=== PATIENT | male | born 1980 | race Caucasian/White ===

== ENCOUNTER 2021-10-30 02:08 | Day surgery (SDC) | payer OTHER, SELFPAY ==
[2021-10-29 09:00] VITALS: BMI 34.4
--- NOTE | 2021-10-29 09:08 | PC.NURSE ---
Report to the Outpatient Waiting Room, entrance under the green pavilion located off [facility], at time ___0830____ on date __10/30/21 . OR Time: _1030 . Time changes happen often and if your time is changed the preop area will call you the afternoon before. - You and your visitor will be asked to self-screen and do not enter if you have any COVID symptoms. - Only one visitor and NO children visitors are allowed at this time. - The patient visitor is requested to leave or wait in car when not with patient due to restrictions. - A mask is required within the hospital. Patients may have clear liquids (water, carbonated beverages, clear teas, apple juice) until 3 hours prior to surgery (0730 AM) with a maximum of 20 ounces. - No food from midnight until time of surgery - Infants may have breast milk until 4 hours before surgery, infant formula 6 hours prior to surgery. - Children will be allowed to drink immediately following surgery. If applicable, please bring a bottle or sippy cup to assist with drinking. Juice, water, soda, and popsicles are readily available. For infants on formula, please bring formula the day of surgery. Pacifiers are allowed. Take the following medications with a SIP of water the morning of surgery: PAIN MED IF NEEDED Medications to discontinue per physician Date to take last dose Please no make-up, nail nauruan, hairspray, perfume, deodorant, or body powder the day of surgery. No jewelry (including any body piercings) or valuables the day of surgery, leave them at home. Please take a shower or bath the night before, or the morning of, surgery with an antibacterial soap. Wear comfortable, loose fitting clothing. Children are encouraged to wear pajamas. - Jewelry must be removed prior to entering the operating room. Rings and piercings that are not removed may be cut off. - The hospital will not accept responsibility for valuables. - Please leave all valuables, including medications, at home the day of surgery. If you are going home after surgery, a licensed warehouse delivery driver must drive you home. - NO public transportation without another adult. - We recommend that an adult stay with you for 24 hours following discharge. - We also recommend that you do not drive, make important decision, drink alcoholic beverages, or take any drugs that were not prescribed by your health care provider for at least 24 hours after your discharge time. For Pediatric surgeries, we recommend two adults accompany the child home (only one inside the building at this time). Follow any additional instructions given to you from your surgeon. If you or anyone in your household have experienced Covid symptoms in the past week, please notify your surgeon or the nurse liaison at the phone number below for possible testing. Telephone instructions given to ____PT and asked if any additional questions and then verbalized understanding. Patient advised to call surgeon office or pre surgery nurse liaison [phone] if any additional questions.
--- NOTE | 2021-10-29 12:04 | PM.HPGS ---
History of Present Illness History of Present Illness Consent: Risks, benefits, and alternatives have been discussed and questions answered. Patient agrees to proceed with procedure. Chief complaint: right ureteral stone Narrative: Manuel Shell Jr. is a 41 year old male who is followed by Dr. Harden for erectile dysfunction but without known history of urolithiasis until recently developed right flank pain. Imaging demonstrates a 4 mm obstructing right distal ureteral calculus. After discussion of options he has elected to proceed with cystoscopy with right ureteroscopy and stone extraction, possible laser lithotripsy, retrograde pyelogram and stent placement. He is aware of the risk including, but not limited to, adverse cardiopulmonary events, ureteral injury and need for indwelling stent. [facility] Social History Social History (System 10/28/20 @ 10:47 by Amrita Lorenzo) Smoking status: Current some day smoker Tobacco type: cigars Second hand tobacco smoke exposure: Yes (OCCASIONALLY) Additional smoking assessment comments: STATES 1 CIGAR/6 MONTHS X 10 YRS Alcohol intake: current Alcohol use details: STATES RARELY MAYBE 1-2 / 6 MONTH Substance use: never Substance use type: does not use Living arrangements: with family Spiritual care concerns: No Meds Home Medications and Allergies Home Medications Medication Instructions Recorded Confirmed Type hydrocodone 5 mg-acetaminophen 325 1 tablet PRN PRN Pain 10/29/21 10/29/21 History mg tablet tamsulosin 0.4 mg capsule 0.4 mg PO HS 10/29/21 10/29/21 History temazepam 15 mg capsule 15 mg HS 10/29/21 10/29/21 History Allergies Allergy/AdvReac Type Severity Reaction Status Date / Time No Known Allergies Allergy Verified 10/29/21 08:56 Exam Const: General: no acute distress Resp: Effort & Inspection: normal respiratory effort GI: Inspection: non-distended GI Palp: No abdominal tenderness and No Guarding due to palpation present (GI) Auscultation: normal bowel sounds Assessment and Plan Assessment and plan (1) Ureteral stone with hydronephrosis: Code(s): N13.2 - Hydronephrosis with renal and ureteral calculous obstruction Status: Acute Assessment and Plan: Cystoscopy, right ureteroscopy stone extraction, possible retrograde pyelogram, laser lithotripsy and stent placement
[2021-10-30] VITALS (7 sets, daily range): BP systolic 107–131; BP diastolic 73–92; PULSE 56–72; RESP 14–18; TEMP 36.2–36.4; O2SAT 94–98
--- NOTE | ~2021-10-30 | XR_ITS ---
EXAMINATION: XR fluoroscopy no charge DATE: 10/30/2021 12:10 INDICATION: Renal stone extraction TECHNIQUE: 2 fluoroscopic images of the abdomen and pelvis were obtained during procedure performed maris Fairchild. Radiologist was not present for the imaging or procedure. The amount of fluoroscopy samra e used during this procedure was 0.4 minutes. COMPARISON: None. FINDINGS: Cholecystectomy clips in right upper quadrant. Normal bowel gas pattern. Subtle density projecting al mak the lateral margin of the right sacral ala potentially representing a distal ureteral stone. Smal l density in the left hemipelvis on: The expected location of the left ureter and more likely to repr esent a phlebolith. IMPRESSION: 1. Possible distal right ureteral stone however assessment is limited by fluoroscopic technique. Rocío elate with procedure note and any prior outside imaging. Reviewed, dictated and finalized at location A. IMPRESSION: 1. Possible distal right ureteral stone however assessment is limited by fluoro scopic technique. Correlate with procedure note and any prior outside imaging.
--- NOTE | 2021-10-30 07:04 | WPDHPUPDATE1 ---
History and Physical Update Update Date/Time: 10/30/21 07:04 History and Physical has been reviewed, including an updated exam of the patient. There are NO changes in the patient's condition. Risks, benefits, and alternatives have been discussed and questions answered. Patient agrees to proceed with procedure.
--- NOTE | 2021-10-30 10:00 | P.PNAN_ITS ---
Anes - Initial Pre Proc Eval Procedure: Operation Date: 10/30/21 11:30 Proposed Procedures p Cystoscopy, Right Ureteroscopy, Possible Right Retrograde Pyelogram, Possible Right Stone Extraction, Possible Right Stent Placement, Possible Holmium Laser Procedure - Alex Fairchild MD Date/Time: 10/30/21 10:00 Surgeon: Alex Fairchild MD Pre Op Diagnosis: right ureteral stone Patient Data Age: 41 Gender: M Height: 1.83 m Weight: 120.2 kg Last Vital Signs Temp 36.4 C 10/30/21 09:55 Pulse 62 10/30/21 09:55 Resp 16 10/30/21 09:55 BP 129/81 10/30/21 09:55 Pulse Ox 98 10/30/21 09:55 O2 Del Method Room Air 10/30/21 09:55 Allergies Allergy/AdvReac Type Severity Reaction Status Date / Time No Known Allergies Allergy Verified 10/30/21 09:41 Home Medications Medication Instructions Recorded Confirmed Type hydrocodone 5 mg-acetaminophen 325 1 tablet PRN PRN Pain 10/29/21 10/30/21 History mg tablet tamsulosin 0.4 mg capsule 0.4 mg PO HS 10/29/21 10/30/21 History temazepam 15 mg capsule 15 mg HS 10/29/21 10/30/21 History Patient hx anesthesia problems: none Family hx anesthesia problems: none Results Review: All pre-operative results and documents have been reviewed as part of the pre- operative evaluation. [facility] Past Medical History Medical History LINETTE (obstructive sleep apnea) Tobacco abuse Social History Social History Smoking status: Current some day smoker Tobacco type: cigars Second hand tobacco smoke exposure: Yes (OCCASIONALLY) Additional smoking assessment comments: STATES 1 CIGAR/6 MONTHS X 10 YRS Alcohol intake: current Alcohol use details: STATES RARELY MAYBE 1-2 / 6 MONTH Substance use: never Substance use type: does not use Living arrangements: with family Spiritual care concerns: No Anes - Eval Final PreProcedure Day of Procedure 10/30/21 10:00 Patient weight: obese Heart: regular rate and rhythm Lungs: decreased breath sounds Airway: Mallampati scale class II Neurological: alert and oriented Last oral intake: >/= 8 hours ASA classification: III Emergent: no Anesthetic plan: proceed Anesthesia type and monitoring: general LMA and standard monitoring Results Review: All pre-operative results and documents have been reviewed as part of the pre- operative evaluation. Informed Consent: The patient's anesthetic plan and its attendant risks and benefits were discussed with the patient/family/POA. Questions were solicited and answers provided to the satisfaction of the patient/family/POA.
[2021-10-30] MEDS: LACTATED RINGERS 1,000 ML 30 ML IV CONT (10:12)
[2021-10-30] MEDS: ceFAZolin 3 GM/D5W 100 ML 100 ML IVPB (11:42)
[2021-10-30] MEDS: LIDOCAINE HCL 2% GEL UROJET 10 ML PKG MUCOUS MEM (11:56)
--- NOTE | 2021-10-30 12:07 | W.PM.PROC2 ---
Procedure Note - Detailed Date of Procedure 10/30/21 Pre-op Diagnosis Right ureteral stone Post-op Diagnosis Same Procedure Performed Cystoscopy, right ureteroscopy with stone extraction Surgeon Alex Fairchild MD Description of Procedure The patient was brought to the operative suite where he is prepped and draped in a routine sterile fashion while in the dorsal lithotomy position after the uneventful induction of a general LMA anesthetic. A 19F rigid cystoscope was placed in the bladder. There are no urethral strictures. His prostatic urethra measures, approximately, 1.0cm with no median lobe enlargement. The bladder mucosa was endoscopically normal without hyperemia or neoplasm. There was a single, orthotopic ureteral orifice bilaterally. A 0.035 glidewire was advanced into the right renal pelvis under fluoroscopy. The distal ureter was dilated with an 8F/10F ureteral dilator. Ureteroscopy was undertaken with a short, tapered, semi-rigid ureteroscope and the stone was extracted with ease using a 1.9F Escape disposable stone basket. Due to the ease of this manipulation I opted not to place a ureteral stent. The patient's bladder was emptied and was taken to the recovery room having tolerated this procedure well. Drains No Packing No Pathology None sent Condition Stable Disposition PACU
[2021-10-30] MEDS: oxyCODONE HCL (*CRX) 5 MG TAB IR PO (13:19)
== END 2021-10-30 13:56 | disposition home or self-care (01) ==
PROVIDERS: PCP Family Medicine; Visit Provider Urology
PROC: (CPT 52352; principal; 2021-10-30 11:30)
DX: N13.2 Hydronephrosis with renal and ureteral calculous obstruction (principal); G47.33 Obstructive sleep apnea (adult) (pediatric); F17.210 Nicotine dependence, cigarettes, uncomplicated; E66.9 Obesity, unspecified; Z68.35 Body mass index [BMI] 35.0-35.9, adult
CPT/HCPCS: 52352; 82365; 88300; 99199; A9270; C1769; J0690; J1100; J1885; J2250; J2405; J2704; J3010; J7120; Q9966

== ENCOUNTER 2021-10-31 20:18 | Observation (INO) | payer OTHER, SELFPAY ==
--- NOTE | ~2021-10-31 | CT_ITS ---
EXAMINATION: CT abdomen pelvis wo con DATE: 10/31/2021 21:21 INDICATION: Status post 2 urethroscopy with stone extraction TECHNIQUE: Computed tomography (CT) of the abdomen and pelvis was performed without intravenous contr ast. Automated exposure control and iterative reconstruction technique were employed. The dose-length product was 1315.45 mGy-cm. COMPARISON: Fluoroscopy 10/31/2019. FINDINGS: Lower thorax: Coronary artery calcification. Right middle lobe scar. Liver: Fatty infiltration. Small cyst near the liver dome. Biliary/Gallbladder: Gallbladder is absent. No bile duct dilation. Pancreas: No mass or duct dilation. Spleen: Normal. Adrenals:No mass. Kidneys: Right kidney appears slightly edematous. Mild-moderate right hydronephrosis. No obstructing stone or mass. Mild inflammatory change around the right kidney and right ureter. Nonobstructing left inferior and punctate left upper pole calculi. GI tract: No small or large bowel dilation. Normal appendix. Mesentery/Peritoneum: No ascites, mass, or free air. Retroperitoneum: No mass. Pelvis: The bladder is decompressed. Inflammatory changes around the right distal ureter and the righ t UVJ. Soft Tissues: Uncomplicated fat-containing bilateral inguinal hernias Bones: No acute osseous finding. IMPRESSION: No pneumoperitoneum or free fluid. Mild-moderate right hydronephrosis with inflammation of the right kidney and right collecting system, presumably related to recently treated obstructive uropathy. No o bstructing stone or mass. Ascending infection cannot be excluded. Reviewed, dictated and finalized at location K. IMPRESSION: No pneumoperitoneum or free fluid. Mild-moderate right hydronephrosis with infl ammation of the right kidney and right collecting system, presumably related to recently treated obstructive uropathy. No obstructing stone or mass. Ascending infection cannot be excluded.
[2021-10-31 20:25] VITALS: BP 186/98; PULSE 68; RESP 16; TEMP 36.9; O2SAT 99
--- NOTE | 2021-10-31 20:27 | ED.MALEGU ---
HPI - Male Genitourinary General Chief complaint: Urogenital-Male Stated complaint: Groin Pain, Kidney stone removal 10/30/21 Time Seen by Provider: 10/31/21 20:22 Source: patient Mode of arrival: ambulatory History of Present Illness HPI Narrative: Patient is 41 years old white male drove himself to the emergency room from home complaining of right flank pain started 5 hours prior to arrival to the emergency room. Patient is status post cystoscopy, right ureteroscopy with stone extraction yesterday by Dr. Fairchild. Patient denies any fever, chills, nausea, vomiting. Patient denies aggravating or relieving factors. Patient been having burning sensation during urination immediately after the procedure. Patient on Keflex and hydrocodone as needed Related Data Home Medications Medication Instructions Recorded Confirmed hydrocodone 5 mg-acetaminophen 325 1 tablet PRN PRN Pain 10/29/21 10/30/21 mg tablet tamsulosin 0.4 mg capsule 0.4 mg PO HS 10/29/21 10/30/21 temazepam 15 mg capsule 15 mg HS 10/29/21 10/30/21 Allergies Allergy/AdvReac Type Severity Reaction Status Date / Time No Known Allergies Allergy Verified 10/31/21 20:28 Review of Systems Review of Systems: All systems reviewed & are unremarkable except as noted in HPI and below PMFSH Past Medical History Medical History LINETTE (obstructive sleep apnea) Tobacco abuse Social History Social History Smoking status: Current some day smoker Tobacco type: cigars Second hand tobacco smoke exposure: Yes (OCCASIONALLY) Additional smoking assessment comments: STATES 1 CIGAR/6 MONTHS X 10 YRS Alcohol intake: current Alcohol use details: STATES RARELY MAYBE 1-2 / 6 MONTH Substance use: never Substance use type: does not use Spiritual care concerns: No Exam Narrative: General appearance: Well-developed, well-nourished Skin: Normal color Head: Normocephalic, nontraumatic Eyes: Clear conjunctiva ENT: Oropharynx normal, ears normal, nose normal Neck: Supple, nontender Chest and respiratory: Airway patent, no respiratory distress, no accessory muscle use Heart: Regular rate/rhythm Abdomen: Soft, mild right flank tenderness, no organomegaly, quiet bowel sounds Vascular: Normal peripheral pulses, normal capillary refill. Musculoskeletal: Normal range of motion, nontender back Neurologic: Alert and oriented ?3, CREDIT VERIFICATION CLERK is normal as tested, no gross motor deficit Course Consultations Consultation #1: DR FAIRCHILD Date: 10/31/21 Time: 21:44 Vital Signs Vital signs: Vital Signs Temperature 36.9 C 10/31/21 20:25 Pulse Rate 68 10/31/21 20:25 Respiratory Rate 16 10/31/21 20:25 Blood Pressure 186/98 H 10/31/21 20:25 Pulse Oximetry 99 10/31/21 20:25 Temperature 36.9 C 10/31/21 20:25 Pulse Rate 68 10/31/21 20:25 Respiratory Rate 16 10/31/21 20:25 Blood Pressure 186/98 H 10/31/21 20:25 Pulse Oximetry 99 10/31/21 20:25 MDM - Male Genitourinary Lab Data Result diagrams: 10/31/21 20:44 10/31/21 20:44 Labs: Lab Results 10/31/21 10/31/21 10/31/21 Range/Units 20:44 20:44 20:44 WBC 13.7 H (4.5-10.0) K/mm3 RBC 5.01 (4.6-6.20) M/mm3 Hgb 15.1 (14.0-18.0) g/dL Hct 44.5 (42.0-52.0) % MCV 88.8 (80-100) fl MCH 30.1 (26-34) pg MCHC 33.9 (32-36) g/dl RDW 13.8 (11.5-14.5) % Plt Count 222 (150-375) k/mm3 MPV 10.4 (7.4-10.4) fl Immature Gran % (Auto) 0.3 (0-0.5) % Neut % (Auto) 63.4 (45.5-73.1) % Lymph % (Auto) 25.8 (18.3-44.2) % [place] % (Auto) 9.
[2021-10-31] MEDS: SODIUM CHLORIDE 0.9% IV 1,000 ML 999 ML IV CONT (20:40)
[2021-10-31] MEDS: HYDROmorphone HCL INJ (*CRX) 1 MG/ML SYR 0.5 MG IV PUSH ×2 (20:41→21:24)
[2021-10-31] MEDS: ONDANSETRON INJ 4 MG/2 ML VIAL IV PUSH (20:41)
[2021-10-31 20:51] LABS: Basophils Percent Auto 0.3 % (0.2-1.2); Eosinophils Absolute Auto 0.1 K/mm3 (0-0.3); Eosinophils Percent Auto 0.5 % (0-4.4); Hematocrit 44.5 % (42.0-52.0); Hemoglobin 15.1 g/dL (14.0-18.0); Immature Granulocyte Absolute 0.04 K/mm3 (0.00-0.031); Immature Granulocyte Percent A 0.3 % (0-0.5); Lymphocytes Absolute Auto 3.54 K/mm3 (0.9-3.2); Lymphocytes Percent Auto 25.8 % (18.3-44.2); Mean Corpuscular HGB Conc 33.9 g/dl (32-36); Mean Corpuscular Hemoglobin 30.1 pg (26-34); Mean Corpuscular Volume 88.8 fl (80-100); Mean Platelet Volume 10.4 fl (7.4-10.4); Monocytes Absolute Auto 1.3 K/mm3 (0.1-0.6); Monocytes Percent Auto 9.7 % (2.6-8.5); Neutrophils Absolute Auto 8.7 K/mm3 (1.3-6.7); Neutrophils Percent Auto 63.4 % (45.5-73.1); Platelet Count Result 222 k/mm3 (150-375); Red Blood Count 5.01 M/mm3 (4.6-6.20); Red Cell Distribution Width 13.8 % (11.5-14.5); White Blood Count 13.7 K/mm3 (4.5-10.0)
[2021-10-31 20:53] LABS: Appearance Urine Slightly Cloudy (Clear); Bilirubin Urine Negative (Negative); Blood Urine 3+ (Negative); Color Urine Yellow (Yellow); Glucose Urine UA Negative (Negative); Ketones Urine Trace mg/dL (Negative); Leukocyte Esterase Ur Trace LEU/UL (Negative); Nitrate Urine Negative (Negative); Protein Urine 1+ mg/dL (Negative); Specific Grav Ur >= 1.030 (1.001-1.035); Urobilinogen Urine 0.2 mg/dL (<2.0); pH Urine 5.5 (5.0-9.0)
[2021-10-31 21:01] LABS: Alanine Aminotransferase 46 U/L (6-50); Albumin Level 4.7 g/dL (3.5-5.1); Alkaline Phosphatase 58 U/L (38-126); Anion Gap 11 mmol/L (8-16); Aspartate Amino Transferase 35 U/L (17-59); Bilirubin,Total 0.9 mg/dL (0.2-1.3); Blood Urea Nitrogen 29 mg/dL (9-20); Calcium 9.5 mg/dL (8.4-10.2); Carbon Dioxide 23 mmol/L (22-30); Chloride 107 mmol/L (98-107); Estimated CRCL calculation 77 ml/min; Estimated Glomerular Filt Rate 51; Glucose 95 mg/dL (65-110); Potassium 4.1 mmol/L (3.4-5.0); Sodium 141 mmol/L (137-145)
[2021-10-31 21:02] LABS: Anion Gap 11 mmol/L (8-16); Blood Urea Nitrogen 30 mg/dL (9-20); Calcium 9.5 mg/dL (8.4-10.2); Carbon Dioxide 22 mmol/L (22-30); Chloride 107 mmol/L (98-107); Estimated CRCL calculation 77 ml/min; Estimated Glomerular Filt Rate 51; Glucose 94 mg/dL (65-110); Potassium 4.1 mmol/L (3.4-5.0); Sodium 140 mmol/L (137-145)
[2021-10-31 21:06] LABS: Add Urine Microscopic? YES; Calcium Oxalate Crystals Urine Present /hpf; RBC Urine >75 /hpf (0-2); WBC Urine 31-50 /hpf
[2021-10-31 22:12] VITALS: BP 168/88; PULSE 86; RESP 16; O2SAT 99
[2021-10-31] MEDS: KETOROLAC 30 MG/ML VIAL (*BKC) IV PUSH (22:41)
[2021-10-31 22:57] LABS: SARS-CoV-2 RNA PCR Negative
[2021-10-31 23:01] VITALS: BP 147/89; PULSE 73; RESP 18; O2SAT 99
--- NOTE | 2021-10-31 23:10 | ADMGEN ---
This patient, Manuel Shell Jr., was admitted to 2 Medical Room 261-01 @2310. Patient/family oriented to hospital policies and general routines including ID bracelet, bed and alarms, visiting hours, pain management, procedures, bathroom and other care routines, personal items, smoking policy, room service/diet, and visiting hours. Information on how to activate the Rapid Response Team has been discussed. Patient/Family are encouraged to report perceived risks to care and to ask questions if they do not understand what they are told or what they should do.
[2021-10-31 23:22] VITALS: BP 153/88; PULSE 68; RESP 16; TEMP 36.6; O2SAT 98; BMI 36.1
[2021-10-31] MEDS: SODIUM CHLORIDE 0.9% IV 1,000 ML 150 ML IV CONT (23:27)
[2021-11-01] MEDS: HYDROmorphone HCL INJ (*CRX) 1 MG/ML SYR 0.5 MG IV PUSH (01:53)
[2021-11-01] MEDS: SODIUM CHLORIDE 0.9% IV 1,000 ML 150 ML IV CONT ×2 (06:10→12:03)
[2021-11-01] MEDS: KETOROLAC 30 MG/ML VIAL (*BKC) IV PUSH (06:10)
[2021-11-01 06:21] VITALS: BP 117/71; PULSE 77; RESP 14; TEMP 36.6; O2SAT 97
[2021-11-01 06:31] LABS: Anion Gap 6 mmol/L (8-16); Blood Urea Nitrogen 30 mg/dL (9-20); Calcium 8.4 mg/dL (8.4-10.2); Carbon Dioxide 25 mmol/L (22-30); Chloride 107 mmol/L (98-107); Estimated CRCL calculation 89 ml/min; Estimated Glomerular Filt Rate > 60; Glucose 93 mg/dL (65-110); Sodium 138 mmol/L (137-145)
--- NOTE | 2021-11-01 08:58 | PM.IMHP ---
H&P: HPI History of Present Illness Date/Time: 11/01/21 08:58 Chief Complaint: Right flank pain Narrative: 41-year-old male status post right ureteroscopy with distal ureteral stone extraction on 10/30/2021. He did well for the first 36 hours but then began to have increasingly severe right flank pain radiating to his right lower quadrant. He denied fevers chills gross hematuria irritable voiding. Was seen in the ER where imaging revealed inflammation and slight obstruction of the right ureter without stone. This is consistent with ureteral edema. He is admitted for pain control and hydration. Review of Systems Cardiovascular: Cardiovascular: Denies chest pain, Denies lightheadedness, Denies palpitations and Denies dyspnea Respiratory: Respiratory: Denies dyspnea Gastrointestinal: Gastrointestinal: Reports abdominal pain, Denies diarrhea, Denies nausea and Denies vomiting Genitourinary: Genitourinary: Denies hematuria and Denies dysuria Endocrine: Endocrine: Denies palpitations PMFSH Past Medical History Medical History LINETTE (obstructive sleep apnea) Tobacco abuse Family History Family History (Updated 10/31/21 @ 23:19 by Evangelina Okeefe RN) Father Diabetes mellitus Social History Social History Smoking status: Current some day smoker Second hand tobacco smoke exposure: Yes (OCCASIONALLY) Additional smoking assessment comments: STATES 1 CIGAR/6 MONTHS X 10 YRS Alcohol intake: current Alcohol use details: STATES RARELY MAYBE 1-2 / 6 MONTH Substance use: never Substance use type: does not use Spiritual care concerns: No Meds Home Medications and Allergies Home Medications Medication Instructions Recorded Confirmed Type tamsulosin 0.4 mg capsule 0.4 mg PO HS 10/29/21 10/31/21 History temazepam 15 mg capsule 15 mg HS 10/29/21 10/31/21 History cephalexin 500 mg capsule 500 mg PO Q8H #9 caps 10/30/21 10/31/21 Rx hydrocodone 5 mg-acetaminophen 325 1 - 2 tablet PO Q6H PRN pain #20 10/30/21 10/31/21 Rx mg tablet tabs tramadol 50 mg tablet 100 mg PO TID PRN Pain 10/31/21 10/31/21 History Allergies Allergy/AdvReac Type Severity Reaction Status Date / Time No Known Allergies Allergy Verified 10/31/21 23:26 Vital Signs Vital Signs - 24 hr 10/31/21 20:25 10/31/21 22:12 10/31/21 23:01 Temperature 98.4 F Pulse Rate 68 86 73 Respiratory Rate 16 16 18 Blood Pressure 186/98 H 168/88 H 147/89 H Pulse Oximetry 99 99 99 Oxygen Delivery 10/31/21 23:19 10/31/21 23:22 11/01/21 06:21 Temperature 97.8 F 97.8 F Pulse Rate 68 77 Respiratory Rate 16 14 Blood Pressure 153/88 H 117/71 Pulse Oximetry 98 97 Oxygen Delivery Room Air 11/01/21 08:00 Temperature Pulse Rate Respiratory Rate Blood Pressure Pulse Oximetry Oxygen Delivery Room Air Exam Const: General: no acute distress Resp: Effort & Inspection: normal respiratory effort GI: Inspection: non-distended GI Palp: No abdominal tenderness and No Guarding due to palpation present (GI) Auscultation: normal bowel sounds H&P: Results Labs Labs: Short CBC 10/31/21 10/31/21 Range/Units 20:44 20:44 WBC 13.7 H Cancelled (4.5-10.0) K/mm3 Hgb 15.1 Cancelled (14.0-18.0) g/dL Hct 44.5 Cancelled (42.0-52.0) % Plt Count 222 Cancelled (150-375) k/mm3 BMP 10/31/21 10/31/21 11/01/21 20:44 20:44 05:46 Sodium 141 140 138 Potassium 4.1 4.1 4.0 Chloride 107 107 107 Carbon Dioxide 23 22 25 BUN 29 H 30 H 30 H Creatinine 1.50 H 1.50 H 1.30 Glucose 95 94 93 Calcium 9.5 9.5 8.4 Liver Function 10/31/21 Range/Units 20:44 Total Bilirubin 0.9 (0.2-1.3) mg/dL AST 35 (17-59) U/L ALT 46 (6-50) U/L Alkaline Phosphatase 58 (38-126) U/L Albumin 4.7 (3.5-5.1) g/dL Urine 10/31/21 Range/Units 20:44 Urine Color Yellow (Ye
[2021-11-01 11:10] VITALS: BP 134/91; PULSE 57; RESP 18; TEMP 36.2; O2SAT 96
[2021-11-01 16:57] VITALS: BP 144/87; PULSE 58; RESP 20; TEMP 36.6; O2SAT 97
--- NOTE | 2021-11-01 17:20 | PM.DS ---
DS: Admitting Diagnosis Discharge Date 11/01/2021 Admitting Diagnosis Right flank pain due to ureteral edema DS: Discharge Diagnosis Discharge Diagnosis (1) Hydronephrosis of right kidney: Code(s): N13.30 - Unspecified hydronephrosis Status: Acute DS: Summary Hospital Course Hospital Course: Patient was admitted 2 days after an endoscopic stone extraction for recurrent right flank pain. Imaging demonstrated right hydronephrosis without identifiable stone. This presentation was consistent with ureteral obstruction secondary to ureteral edema. He improved over a 24 hour period with supportive care including hydration and analgesics. He will be discharged on a combination of hydrocodone and oral Toradol. He has cephalexin at home from hos recent procedure. Time Spent with Patient Time attestation: Total time spent providing and/or coordinating discharge services: Exam Const: General: no acute distress Resp: Effort & Inspection: normal respiratory effort GI: Inspection: non-distended GI Palp: No abdominal tenderness and No Guarding due to palpation present (GI) Auscultation: normal bowel sounds DS: Data Data Completed and Pending Labs on day of discharge: Labs from last 24 hours 11/01/21 10/31/21 10/31/21 05:46 22:15 20:44 WBC RBC Hgb Hct MCV MCH MCHC RDW Plt Count MPV Immature Gran % (Auto) Neut % (Auto) Lymph % (Auto) [place] % (Auto) Eos % (Auto) Baso % (Auto) Lymph # (Auto) [place] # (Auto) Eos # (Auto) Baso # (Auto) Abs Immat Gran (auto) Absolute Neuts (auto) Absolute Nucleated RBC Nucleated RBC % % Immature Plt Fraction Sodium 138 140 Potassium 4.0 4.1 Chloride 107 107 Carbon Dioxide 25 22 Anion Gap 6 L 11 BUN 30 H 30 H Creatinine 1.30 1.50 H Estim Creat Clear Calc 89 77 Estimated GFR > 60 51 L Glucose 93 94 Calcium 8.4 9.5 Total Bilirubin AST ALT Alkaline Phosphatase Total Protein Albumin Urine Color Urine Appearance Urine pH Ur Specific [place] Urine Protein Urine Glucose (UA) Urine Ketones Ur Blood (Man) Urine Nitrate Urine Bilirubin Urine Urobilinogen Leukocyte Esterase Rfl Urine RBC Urine WBC Calcium Oxalate Crystal SARS-CoV-2 RNA (RT-PCR) Negative 10/31/21 10/31/21 10/31/21 20:44 20:44 20:44 WBC Cancelled 13.7 H RBC Cancelled 5.01 Hgb Cancelled 15.1 Hct Cancelled 44.5 MCV Cancelled 88.8 MCH Cancelled 30.1 MCHC Cancelled 33.9 RDW Cancelled 13.8 Plt Count Cancelled 222 MPV Cancelled 10.4 Immature Gran % (Auto) Cancelled 0.3 Neut % (Auto) Cancelled 63.4 Lymph % (Auto) Cancelled 25.8 [place] % (Auto) Cancelled 9.7 H Eos % (Auto) Cancelled 0.5 Baso % (Auto) Cancelled 0.3 Lymph # (Auto) Cancelled 3.54 H [place] # (Auto) Cancelled 1.3 H Eos # (Auto) Cancelled 0.1 Baso # (Auto) Cancelled 0.0 Abs Immat Gran (auto) Cancelled 0.04 H Absolute Neuts (auto) Cancelled 8.7 H Absolute Nucleated RBC Cancelled 0.0 Nucleated RBC % Cancelled 0.0 % Immature Plt Fraction Cancelled Sodium 141 Potassium 4.1 Chloride 107 Carbon Dioxide 23 Anion Gap 11 BUN 29 H Creatinine 1.50 H Estim Creat Clear Calc 77 Estimated GFR 51 L Glucose 95 Calcium 9.5 Total Bilirubin 0.9 AST 35 ALT 46 Alkaline Phosphatase 58 Total Protein 8.0 Albumin 4.7 Urine Color Urine Appearance Urine pH Ur Specific [place] Urine Protein Urine Glucose (UA) Urine Ketones Ur Blood (Man) Urine Nitrate Urine Bilirubin Urine Urobilinogen Leukocyte Esterase Rfl Urine RBC Urine WBC Calcium Oxalate Crystal SARS-CoV-2 RNA (RT-PCR) 10/31/21 20:44 WBC RBC Hgb Hct MCV MCH MCHC RDW Plt Count MPV Immature Gran % (Auto) Neut % (Auto) Lymp
[2021-11-01] MEDS: LOPERAMIDE HCL 2 MG CAPSULE 4 MG PO (18:01)
== END 2021-11-01 18:20 | disposition home or self-care (01) ==
LOC: ANHED 21:46 → ANH2MED 22:46
PROVIDERS: Admitting Provider Urology; Emergency Provider Emergency Medicine; PCP Family Medicine; Visit Provider Urology
DX: N13.30 Unspecified hydronephrosis (principal); N39.0 Urinary tract infection, site not specified; Z98.890 Other specified postprocedural states; G47.33 Obstructive sleep apnea (adult) (pediatric); K76.89 Other specified diseases of liver; Z90.49 Acquired absence of other specified parts of digestive tract; Z20.822 Contact with and (suspected) exposure to COVID-19; F17.290 Nicotine dependence, other tobacco product, uncomplicated; Z79.891 Long term (current) use of opiate analgesic; Z79.899 Other long term (current) drug therapy
CPT/HCPCS: 36415; 74176; 80048; 80053; 81001; 85025; 87086; 96361; 96374; 96375; 96376; 99285; A9270; C9803; G0378; J0131; J0696; J1170; J1885; J2405; J7030; U0003; U0005

== ENCOUNTER 2022-01-26 09:36 | Outpatient (CLI) | payer OTHER, SELFPAY ==
--- NOTE | ~2022-01-26 | XR_ITS ---
XR abdomen/kub 1V DATE: 01/26/2022 09:59 INDICATION: Bilateral kidney stones TECHNIQUE: 3 supine AP views COMPARISON: 10/31/2021 CT abdomen pelvis FINDINGS: There is a faint calcification overlying the lower pole left kidney corresponding to approx imately 3.7 mm calculus of lower pole documented on 10/31/2021 CT examination. No other urinary tract calcification is evident. Surgical clips, right upper quadrant, consistent with cholecystectomy. The psoas shadows are intact. No visceromegaly is detected. No evidence of bowel obstruction. IMPRESSION: Approximately 3.7 mm nonobstructing faintly calcified lower pole left renal calculus Reviewed, dictated and finalized at [facility]. Reviewed, dictated and finalized at location B. DELIVERER IMPRESSION: Approximately 3.7 mm nonobstructing faintly calcified lower pole le ft renal calculus
== END 2022-01-26 09:37 | disposition home or self-care (01) ==
PROVIDERS: PCP Family Medicine; Visit Provider Urology
DX: N20.2 Calculus of kidney with calculus of ureter (principal)
CPT/HCPCS: 74018

== ENCOUNTER 2022-04-08 15:20 | Outpatient (CLI) | payer OTHER, SELFPAY ==
--- NOTE | ~2022-04-08 | XR_ITS ---
EXAMINATION: XR knee LT 3V DATE: 04/08/2022 15:30 INDICATION: Left knee pain and swelling TECHNIQUE: Three views of the right knee were obtained. COMPARISON: None. FINDINGS: Alignment is normal. No fracture or osteochondral lesion. Joint spaces are normal with no e rosions. No joint effusion/synovitis. There is mild soft tissue swelling of the knee. IMPRESSION: 1. Mild soft tissue swelling without acute osseous abnormality. Reviewed, dictated and finalized at location A. ELLER LAYOUT WORKER
== END 2022-04-08 15:21 | disposition home or self-care (01) ==
LOC: ANHBWCIMG 15:21
PROVIDERS: PCP Family Medicine; Visit Provider Family Medicine
DX: M25.562 Pain in left knee (principal); R22.42 Localized swelling, mass and lump, left lower limb
CPT/HCPCS: 73562

== ENCOUNTER 2022-11-01 11:34 | Outpatient (CLI) | payer OTHER, SELFPAY ==
--- NOTE | ~2022-11-01 | XR_ITS ---
EXAM: XR shoulder LT min 2V DATE: 11/01/2022 11:47 HISTORY: LT shoulder limited ROM, chronic but worse in last 3 months . COMPARISON: None available. FINDINGS: Normal mineralization. No fracture or dislocation. No lytic or blastic lesion. Mild AC maribell nt hypertrophy. Round calcification projecting over the biceps anchor. No erosion or periosteal elizondo e. Soft tissues within normal limits. IMPRESSION: Mild AC joint osteoarthritis. Likely calcific tendinitis at the biceps anchor. Reviewed, dictated and finalized at location K.
== END 2022-11-01 11:35 | disposition home or self-care (01) ==
PROVIDERS: PCP Nurse Practitioner Adult Health; Visit Provider Nurse Practitioner Adult Health
DX: M25.512 Pain in left shoulder (principal); M19.012 Primary osteoarthritis, left shoulder
CPT/HCPCS: 73030

== ENCOUNTER 2023-03-23 08:20 | Outpatient (CLI) | payer OTHER, SELFPAY ==
[2023-03-23 18:46] LABS: Hematocrit 47.2 % (42.0-52.0); Hemoglobin 15.7 g/dL (14.0-18.0); Mean Corpuscular HGB Conc 33.3 g/dl (32-36); Mean Corpuscular Volume 90.1 fl (80-100); Mean Platelet Volume 11.4 fl (7.4-10.4); Platelet Count Result 196 k/mm3 (150-375); Red Blood Count 5.24 M/mm3 (4.6-6.20); Red Cell Distribution Width 13.7 % (11.5-14.5)
[2023-03-23 19:25] LABS: Alanine Aminotransferase 66 U/L (6-50); Albumin Level 4.3 g/dL (3.5-5.1); Alkaline Phosphatase 58 U/L (38-126); Anion Gap 8 mmol/L (8-16); Aspartate Amino Transferase 69 U/L (17-59); Bilirubin,Total 1.3 mg/dL (0.2-1.3); Blood Urea Nitrogen 20 mg/dL (9-20); Calcium 9.3 mg/dL (8.4-10.2); Carbon Dioxide 25 mmol/L (22-30); Chloride 105 mmol/L (98-107); Cholesterol 247 mg/dL (0-200); Estimated Glomerular Filt Rate > 60; Glucose 95 mg/dL (65-110); HDL Direct 34 mg/dL; Potassium 4.8 mmol/L (3.4-5.0); Sodium 138 mmol/L (137-145); Triglycerides 258 mg/dL (<150)
[2023-03-23 19:36] LABS: LDL Cholesterol Direct 155 mg/dL
[2023-03-27 12:01] LABS: Testosterone Free 105.3 pg/mL (35.0-155.0); Testosterone Total 924 ng/dL (250-1100)
== END 2023-03-23 08:21 | disposition home or self-care (01) ==
PROVIDERS: PCP Nurse Practitioner Adult Health; Visit Provider Nurse Practitioner Adult Health
DX: Z13.9 Encounter for screening, unspecified (principal); N52.9 Male erectile dysfunction, unspecified; G47.33 Obstructive sleep apnea (adult) (pediatric)
CPT/HCPCS: 36415; 80053; 80061; 84402; 84403; 84443; 85027

== ENCOUNTER 2024-04-24 06:33 | Day surgery (SDC) | payer OTHER, SELFPAY ==
[2024-03-13 11:13] VITALS: BMI 34.6
[2024-04-09 10:56] VITALS: BMI 34.4
--- NOTE | 2024-04-24 07:08 | PM.HPGS ---
History of Present Illness History of Present Illness Consent: Risks, benefits, and alternatives have been discussed and questions answered. Patient agrees to proceed with procedure. Chief complaint: Lumbosacral spondylosis, chronic low back pain Narrative: Manuel Shell Jr. is a 43 year old male with chronic, recalcitrant and disabling bilateral lumbosacral back pain secondary to degenerative spondylosis with failure to respond to aggressive conservative measures including PT, oral and topical analgesics, opioid and nonopioid analgesics, rest, time and activity/behavioral modification over the past 1-2 years who presents for diagnostic/prognostic medial branch blocks of the bilateral L3, L4, L5 medial branches/dorsal ramus(#1) addressing the ipsilateral L4-5, L5-S1 facet joints under fluoroscopic guidance and with contrast control. Review of Systems Review of Systems: Patient denies any new infectious, allergic, cardiopulmonary, neurologic or constitutional symptoms or changes in activity tolerance or exercise capacity including new or progressive SOB/KRISHNAN, peripheral edema, productive cough, dysuria, nausea/vomiting, diarrhea, weight change, fevers/chills/night sweats, new or progressive neurologic deficit, cognitive or mood changes since last seen, except as documented in the HPI. All systems reviewed & are unremarkable except as noted in HPI and below PMFSH Past Medical History Medical History Tobacco abuse LINETTE (obstructive sleep apnea) Family History Family History Father Diabetes mellitus Hypertension Depression Mother Depression Social History Social History Smoking status: Never smoker Second hand tobacco smoke exposure: No Additional smoking assessment comments: STATES 1 CIGAR/6 MONTHS X 10 YRS Alcohol intake: current Alcohol use details: STATES RARELY MAYBE 1-2 / 6 MONTH Substance use: never Substance use type: does not use Lack of Transportation: No Lack of Food: Never True Current Housing: I Have Housing Concerned About Future Housing: No Difficulty Paying Gas/Electric Bills: No Difficulty Paying for Meds: No Currently Unemployed: No Education: High School Diploma/GED Difficulty w/ Childcare or Family Care: No Living arrangements: with family Gender identity (if verbalized by the patient): Male Spiritual care concerns: No Meds Home Medications and Allergies Home Medications ?Medication ?Instructions ?Recorded ?Confirmed ?Type sumatriptan succinate 100 mg See Rx Instructions PO .COMPLEX 12/29/21 04/24/24 Rx tablet (Imitrex) #14 tabs topiramate 50 mg tablet 50 mg PO DAILY #90 tabs 06/28/23 04/24/24 Rx ropinirole 2 mg tablet 2 mg PO DAILY #30 tabs 07/11/23 04/24/24 Rx tadalafil 10 mg tablet 10 mg PO DAILY PRN sexual activity 11/18/23 04/24/24 Rx #20 tabs tramadol 50 mg tablet 100 mg (2 x 50 mg) PO Q6H PRN pain 03/29/24 04/24/24 Rx #100 tabs Allergies Allergy/AdvReac Type Severity Reaction Status Date / Time No Known Allergies Allergy Verified 04/24/24 06:58 Exam Narrative: The patient's physical exam is essentially unchanged from prior examination on 03/05/2024. Specifically, patient demonstrates normal lung capacity, tidal volume and respiratory rate without wheezes, crackles, rales or rubs. Heart rate and rhythm are regular without murmurs, gallops or rubs. No JVD. Pulses 2+ globally without increasing peripheral edema. AAOx3 with no evidence of confusion, intoxication or altered mental state, NC/AT without acute distress or altered consciousness. Speech, cognition, mood, insight and judgment at baseline and within normal limits. Assessment and Plan Assessment and plan (1) Lumbosacral spondylosis: Code(s): M47.817 - Spondylosis without myelopathy or radiculopathy, lumbosacral region Status: Acute Assessment and Plan: Procedures planned with diagnostic/prognostic medial branch blocks of the bilateral L3, L4, L5 medial branches/dorsal ramus(#1) addressing the ipsilateral L4-5, L5-S1 facet joints under fluoroscopic guidance and with contrast control. (2) Chronic low back pain: Code(s): M54.50 - Low back pain, unspecified; G89.29 - Other chronic pain Status: Acute (3) Dorsalgia of lumbar region: Code(s): M54.50 - Low back pain, unspecified Status: Acute
[2024-04-24 07:09] VITALS: BMI 35.9
[2024-04-24 07:10] VITALS: BP 144/102; PULSE 71; RESP 18; TEMP 36.6; O2SAT 99
--- NOTE | 2024-04-24 07:10 | WPDHPUPDATE1 ---
History and Physical Update Update Date/Time: 04/24/24 07:10 History and Physical has been reviewed, including an updated exam of the patient. There are NO changes in the patient's condition. Risks, benefits, and alternatives have been discussed and questions answered. Patient agrees to proceed with procedure.
--- NOTE | 2024-04-24 07:11 | W.PM.PROC2 ---
Procedure Note - Detailed Date of Procedure 04/24/24 Pre-op Diagnosis Lumbosacral spondylosis, chronic low back pain Post-op Diagnosis Same Procedure Performed Diagnostic bilateral Lumbar Medial Branch/Dorsal Ramus Blocks at L3, L4, L5 Treating the bilateral L4-5, L5-S1 Facet Joints Under Fluoroscopic Guidance and with Contrast Control. (4 levels blocked). Surgeon Jaren Pradhan MD Steel Rule Die Maker None. Anesthesia Local Description of Procedure INFORMED CONSENT: Risks, benefits and alternatives to the procedure were discussed in detail with the patient who expressed explicit understanding and consent to proceed. Patient was informed verbally and in written form regarding the risks associated with the procedure including the low risk of serious infection, bleeding/bruising, allergic reaction, nerve or organ injury, paralysis, procedural site pain or discomfort, worsening pain and/or mobility, failure to treat and/or disfigurement. The patient expressed explicit understanding and consent to proceed. All materials required for the procedure were available prior to procedure start. Site and side were marked prior to procedure and confirmed in the presence of the patient. PROCEDURE IN DETAIL: The patient was brought to the procedural suite and placed in the prone position. Patient was made comfortable with use of pillows under the head/chest, hips and ankles. Skin overlying the injection site on the affected side(s) was prepared broadly with ChloraPrep applicator and draped in a sterile manner. Aseptic technique was used throughout. The endplates of the vertebral bodies at the site(s) of interest were aligned in the AP view. Ipsilateral oblique angulation was utilized to optimize visualization of the intersection between the superior articulating process and transverse process at each target site. Local anesthesia was established by infiltration with approximately 5 mL of 1% lidocaine via a 1-1/2 inch 27-gauge needle. A 25-gauge 5.0 inch Quincke spinal needle was advanced until the needle tip contacted periosteum at the target site, right L3. Lateral view was utilized to confirm the appropriate placement of the needle tip just anterior to the facet line and superior to the pedicle. In the Lateral view, 0.25 mL of Omnipaque 300 contrast medium was injected after negative aspiration for CSF, blood or other bodily fluid, showing appropriate extra-articular spread of contrast without evidence of intravascular, foraminal or intrathecal placement. A 0.5 mL solution of 0.5% PF bupivacaine was injected after negative repeat aspiration. Appropriate spread of the injectate was confirmed with washout of previously injected contrast. No parasthesias were elicited. Needle was removed completely intact without difficulty. The same exact procedure was repeated for all remaining levels on the ipsilateral side, right L4, L5 medial branches/dorsal ramus, modified as necessary to accommodate for the new target location with identical findings and results and no evidence of complication. The same exact procedure was repeated for all remaining levels on the contralateral side, left L3, L4, L5 medial branches/dorsal ramus, modified as necessary to accommodate for the new target location with identical findings and results and no evidence of complication. Images were saved and documented in the patient chart. Patient's skin was cleaned and sterile bandage applied. The patient tolerated the procedure well. The patient was transported to the recovery area in stable condition where they were observed for an appropriate amount of time prior to discharge, without evidence of complication. Patient was instructed on the appropriate completion of a pain diary over the next 12-24 hours. The patient was instructed to avoid excessive activity for the next 48 hours, including climbing and frequent use of stairs. Showers only for 48 hours. They were instructed not to drive or operate heavy machinery for 24 hours. They are to monitor for severe headaches, fevers, chills, night sweats, erythema/swelling at the site or any other signs of infection, bleeding/bruising, bowel or bladder changes as well as new pain, weakness or numbness in the upper or lower extremity. Should they notice these changes, they are instructed to call our office immediately or report directly to the nearest Emergency Department if no answer or if after posted office hours. COMPLICATIONS: None COMMENTS: None CONTRAST WASTED: 28.5mL Omnipaque 300. Complications No immediate complications Condition Stable Disposition Same day [facility] Billing Surgery - Charge Forward: Surgery Billing
[2024-04-24 07:33] VITALS: BP 137/86; PULSE 64; RESP 12; O2SAT 95
[2024-04-24 07:39] VITALS: BP 153/91; PULSE 62; RESP 16; O2SAT 96
[2024-04-24 07:46] VITALS: BP 162/97; PULSE 71; RESP 20; O2SAT 97
[2024-04-24] MEDS: LIDOCAINE 1% PF INJ 5 ML VIAL XX (07:50)
[2024-04-24] MEDS: BUPivacaine HCL 0.5% 10 ML AMP INFILTRATE (07:51)
[2024-04-24 07:55] VITALS: BP 143/100; PULSE 74; RESP 18; O2SAT 99
== END 2024-04-24 08:07 | disposition home or self-care (01) ==
PROVIDERS: PCP Family Medicine; Visit Provider Anesthesiology Pain Medicine
PROC: (CPT 64493; principal; 2024-04-24 07:30)
DX: M47.817 Spondylosis without myelopathy or radiculopathy, lumbosacral region (principal); G89.29 Other chronic pain
CPT/HCPCS: 64493; 64494 ×2; 64495 ×2; 99199

== ENCOUNTER 2024-07-17 07:56 | Day surgery (SDC) | payer OTHER, SELFPAY ==
[2024-06-28 08:57] VITALS: BMI 35.2
--- NOTE | ~2024-07-17 | XR_ITS ---
INTRAOPERATIVE FLUOROSCOPY: CLINICAL HISTORY: 43 years old Male; DIAG/PROG ELLEN L3,L4,L5 MEDIAL BRANCH/DORSAL RAMUS BLK#2 PROCEDURE COMMENTS: Limited intraoperative fluoroscopy of the lumbar spine was performed. CUMULATIVE DOSE: 21.8 mGy FLUOROSCOPY TIME: 59 seconds FINDINGS/IMPRESSION: Please refer to operative note for further details. Reviewed, dictated and finalized at location A.
--- OUTSIDE RECORDS SUMMARY | 2024-07-17 08:52 | XMS_ITS | Referral Summary ---
Author Organization [facility] Address [address] [place] [address] Care Team Providers Care Childcare Director Name Role Phone Freids Arango MD Primary Care Provider [phone] Encounters Date Type Department Care Team Description 06/05/2024 12:05 PM CDT - 06/05/2024 12:51 PM CDT Emergency [facility] Emergency Department [address] [place] [address] Acute exacerbation of chronic low back pain (Primary Dx) Discharge Disposition: Discharge to home or self care from Last 3 Months Allergies No known active allergies Medications temazepam (RESTORIL) 15 mg capsule TAKE 1 TABLET BY MOUTH EVERY EVENING NEEDED FOR SLEEP 30 capsule 3 06/16/19 22 Active traMADoL (ULTRAM) 50 mg tablet Take 1 tablet (50 mg total) by mouth every 4 (four) hours as needed for pain (back pain.) Active HYDROcodone-acet aminophen (NORCO) 5-325 mg per tabletIndication s:Pain Take 2 tablets by mouth every 6 (six) hours as needed for pain 40 tablet 06/10/19 24 Active rOPINIRole (REQUIP) 2 mg tablet 09/09/19 24 Active topiramate (TOPAMAX) 50 mg tablet Take 1 tablet (50 mg total) by mouth daily 06/28/19 24 Active acetaminophen-co deine (TYLENOL with CODEINE #4) 300-60 mg per tabletIndication s:Acute exacerbation of chronic low back pain Take 1 tablet by mouth every 6 (six) hours as needed for pain P.r.n. pain not relieved by celecoxib alone. Take with food. Collaborating physician Miguelito Soto MD 15 tablet 06/06/19 25 Active celecoxib (CeleBREX) 200 mg capsuleIndicatio ns:Acute exacerbation of chronic low back pain Take 1 capsule (200 mg total) by mouth 2 (two) times a day P.r.n. pain. Collaborating physician Miguelito Soto MD 30 capsule 06/06/19 25 Active tiZANidine (ZANAFLEX) 4 mg tabletIndication s:Acute exacerbation of chronic low back pain Take 1 tablet (4 mg total) by mouth every 6 (six) hours as needed (Take as directed to relax muscles) Collaborating physician Miguelito Soto MD 20 tablet 06/06/19 25 Active Active Problems Problem Noted Date Diagnosed Date Dog bite of right hand 06/08/2023 FLOYD (acute kidney injury) 11/08/2022 Calculus of distal ureter 11/08/2022 Hyperbilirubinemia 11/08/2022 LINETTE (obstructive sleep apnea) 07/28/2020 History of carpal tunnel surgery of right wrist 10/02/2018 Kidney stones 04/19/2018 Acute exacerbation of chronic low back pain 11/21 Lumbar disc disease 10/13/2017 Erectile dysfunction 10/13/2017 Lack of libido 11/04/2016 Insomnia 07/07/2013 Overview (05/28/2016): INSOMNIA NEC Resolved Problems Problem Noted Date Diagnosed Date Resolved Date Morbid (severe) obesity due to excess calories 04/20/2021 04/21/2021 Viral URI with cough 11/11/2017 019 Assessment & Plan (11/11/2017 9:37 AM CDT): Reassured patient and that this appears to be the end of a viral illness at this time, likely somewhat of a rhino virus. Recommended Cheratussin for cough alleviation use of a humidifier, vaporizer, Tylenol cold and Sinus for acute congestion and certainly follow up with us within a week without any improvement or worsening in symptoms Chronic intractable headache 10/13/2017 10/02/2018 Chronic fatigue 11/04/2016 10/02/2018 BMI 34.0-34.9,adult 11/04/2016 09/26/19 21 Vasculogenic erectile dysfunction 11/04/2016 10/13/2017 Lumbar disc disease with radiculopathy 11/04/2016 10/13/2017 Pure hypercholesterolemia 07/07/2013 Overview (05/26/2016): PURE HYPERCHOLESTEROLEM Carpal tunnel syndrome 07/07/201310/02 Overview (05/28/2016): CARPAL TUNNEL SYNDROME Immunizations Immunization Administration Dates Next Due Influenza, Quadrivalent, Spl it, Intramuscular 01/02/2016,01/01/2015 Influenza, Quadrivalent, Spl it, Preservative Free, Intramuscular 03/05/2020 Influenza, Split 12/22/2009 Influenza, Trivalent, IM (MDV) 12/06/2012,2011,11/22/2010 Influenza, Unspecified 04/20/2021(Deferr ed: Patient Refused),12/02/2017 Tdap 06/06/2023,07/01/2016 Social History Tobacco Use Types Packs/Day Years Used Date Smoking Tobacco: Some Days Cigars Smokeless Tobacco: Never Tobacco Cessation:Ready to Q uit: Not Asked; Counseling Given: Not Answered Alcohol Use Standard Drinks/Week Comments Yes 0 (1 standard drink = 0.6 oz pur e alcohol) [facility] [employer] Answer Date Recorded In the past 12 months has e [email or web address], gas, oil, or water [employer] threatened to shut off services in your home? No 06/09/2023 Humiliation, Afraid, Rape, and Kick questionnair e Answer Date Recorded Within the last year, have y ou been afraid of your partner or ex-partner? No 06/09/2023 Within the last year, have y ou been humiliated or emotionally abused in other ways by your partner or ex-partner? No Within the last year, have y ou been kicked, hit, slapped, or otherwise physically hurt by your partner or ex-partner? No 06/09/2023 Within the last year, have y ou been raped or forced to have any kind of sexual activity by your partner or ex-partner? No 06/09/2023 Social Connection and Isolat ion Panel [NHANES] Answer Date Recorded In a typical week, how many times do you talk on the phone with family, friends, or neighbors? More than three times a week 06/09/2023 How often do you get togethe r with friends or relatives? Once a week 06/09/2023 How often do you attend chur ch or hindu services? Never 06/09/2023 Do you belong to any clubs o r organizations such as jainism groups, unions, fraternal or athletic groups, or school groups? Yes 06/09/2023 How often do you attend meet ings of the clubs or organizations you belong to? More than 4 times per year 06/09/2023 Are you , , di vorced, , never , or living with a partner? 06/09/2023 AUDIT-C Answer Date Recorded Q1: How often do you have a drink containing alc ohol? Monthly or less 06/09/2023 Q2: How many drinks containi ng alcohol do you have on a typical day when you are drinking? 10 or more 06/09/2023 Q3: How often do you have si x or more drinks on one occasion? Less than monthly 06/09/2023 Overall Financial Resource Strain (CARDIA) Answe r Date Recorded How hard is it for you to pa y for the very basics like food, housing, medical care, and heating? Not hard at all 06/09/2023 PHQ-2 Answer Date Recorded PHQ-2 Total Score (If total score is 3 or more points, staff should administer the PHQ-9) 0 06/09/2023 [facility] - Occupational Stress Questionnaire Answer Date Recorded Do you feel stress - tense, restless, nervous, or anxious, or unable to sleep at night because your mind is troubled all the time - these days? Only a little 06/09/2023 Exercise Vital Sign Answer Date Recorde d On average, how many days pe r week do you engage in moderate to strenuous exercise (like a brisk walk)? 5 days 06/09/2023 On average, how many minutes do you engage in exercise at this level? 60 min 06/09/2023 Hunger Vital Sign Answer Date Recorded Within the past 12 months, y ou worried that your food would run out before you got the money to buy more. Never true 06/09/19 24 Within the past 12 months, t he food you bought just didn't last and you didn't have money to get more. Never true 06/09/2023 PRAPARE - Transportation Answer Date Re corded In the past 12 months, has l ack of transportation kept you from medical appointments or from getting medications? No 05/22 In the past 12 months, has l ack of transportation kept you from meetings, work, or from getting things needed for daily living? No 06/09/2023 Housing Stability Vital Sign Answer Mushtaq e Recorded In the last 12 months, was t here a time when you were not able to pay the mortgage or rent on time? No 06/09/2023 In the last 12 months, how many places have you lived? 1 06/09/2023 In the last 12 months, was t here a time when you did not have a steady place to sleep or slept in a senior living (including now)? No 06/09/2023 PHQ-9 Answer Date Recorded PHQ-9 Total Score 0 06/09/2023 Personal Safety Answer Date Recorded Have you ever been in or are you currently in a harmful physical or emotional relationship or is someone making you feel afraid or unsafe? Denies 06/05/2024 Education Answer Date Recorded What is the highest level of school you have completed or the highest degree you have received? High school graduate 11/09/2022 Sex and Gender Information Value Date Recorded Sex Assigned at Not on file Legal Sex Male 3:49 PM [employer]TONHO[employer] Gender Identity Not on file Sexual Orientation Not on file Last Filed Vital Signs Vital Sign Reading Time Taken Comments Blood Pressure 140/74 06/05/2024 12:50 PM CDT Pulse 84 06/05/2024 12:50 PM CDT Temperature 36.6 C (97.9 F) 06/05/2024 11:21 AM CDT Respiratory Rate 14 06/05/2024 12:50 PM CDT Oxygen Saturation 98% 06/05/2024 12:50 PM CDT Inhaled Oxygen Concentration - - Weight 121.1 kg (267 lb) 06/05/2024 11:21 AM CDT Height 182.9 cm (6') 06/08/2023 2:21 PM CDT Body Mass Index 36.21 06/08/2023 2:21 PM CDT Plan of Treatment Not on file Insurance [facility] [employer] Address: [facility] [id number] [place] [address] [employer] OPEN ACCESS [place] [id number] [employer] Address: [facility] [id number] [place] [address] [place] [address] [employer] OPEN ACCESS [facility] WORKERS COMPENSATION GENERIC WORKERS COMPENSATION GENERIC Advance Directives For more information, please contact: [phone] * Full Code (Latest Code Status on File) Date Activated Date Inactivated Comments 06/08/2023 1:22 PM 06/10/2023 6:22 PM * Full Code Date Activated Date Inactivated Comments 11/08/2022 2:31 PM 11/10/2022 8:30 PM Care Teams Childcare Director Relationship Specialty Start Date End Date Fredis Arango MD PCP - General Family Practice 06/05/23
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
[2024-07-17 09:13] VITALS: BP 132/98; PULSE 60; RESP 18; TEMP 36.6; O2SAT 99
--- NOTE | 2024-07-17 09:49 | P.HP_ITS ---
History of Present Illness History of Present Illness Consent: Risks, benefits, and alternatives have been discussed and questions answered. Patient agrees to proceed with procedure. Chief complaint: Spondylosis w/o Myelopathy or Radiculopathy, chron Narrative: Manuel Shell Jr. is a 43 year old male with chronic, recalcitrant and disabling bilateral lumbosacral back pain secondary to degenerative spondylosis with failure to respond to aggressive conservative measures including PT, oral and topical analgesics, opioid and nonopioid analgesics, rest, time and activity/behavioral modification over the past 1-2 years who presents for diagnostic/prognostic medial branch blocks of the bilateral L3, L4, L5 medial branches/dorsal ramus(# 2) addressing the bilateral L4-5, L5-S1 facet joints under fluoroscopic guidance and with contrast control. Review of Systems Review of Systems: Patient denies any new infectious, allergic, cardiopulmonary, neurologic or cons titutional symptoms or changes in activity tolerance or exercise capacity including new or progressive SOB/KRISHNAN, peripheral edema, productive cough, dysuria, nausea/vomiting, diarrhea, weight change, fevers/chills/night sweats, new or progressive neurologic deficit, cognitive or mood changes since last seen, except as documented in the HPI. All systems reviewed & are unremarkable except as noted in HPI and below PMFSH Past Medical History Medical History Tobacco abuse LINETTE (obstructive sleep apnea) Family History Family History Father Diabetes mellitus Hypertension Depression Mother Depression Social History Social History Smoking status: Current some day smoker Tobacco type: cigars Second hand tobacco smoke exposure: Yes Additional smoking assessment comments: STATES 1 CIGAR/6 MONTHS X 10 YRS Alcohol intake: current Alcohol use details: rarely Substance use: never Substance use type: does not use Lack of Transportation: No Lack of Food: Never True Current Housing: I Have Housing Concerned About Future Housing: No Difficulty Paying Gas/Electric Bills: No Difficulty Paying for Meds: No Currently Unemployed: No Education: High School Diploma/GED Difficulty w/ Childcare or Family Care: No Living arrangements: with family Gender identity (if verbalized by the patient): Male Spiritual care concerns: No Meds Home Medications and Allergies Home Medications ?Medication ?Instructions ?Recorded ?Confirmed ?Type sumatriptan succinate 100 mg See Rx Instructions PO .COMPLEX 12/29/21 07/17/24 Rx tablet (Imitrex) #14 tabs ropinirole 2 mg tablet 2 mg PO DAILY #30 tabs 07/11/23 07/17/24 Rx tadalafil 10 mg tablet 10 mg PO DAILY PRN sexual activity 11/18/23 07/17/24 Rx #20 tabs doxepin 25 mg capsule 25 mg PO QHS #30 caps 05/31/24 07/17/24 Rx trazodone 50 mg tablet 50 mg PO QHS PRN insomnia #90 tabs 05/31/24 07/17/24 Rx topiramate 50 mg tablet See Rx Instructions .Route 06/25/24 07/17/24 Rx .COMPLEX #90 tabs benzonatate 200 mg capsule 200 mg PO TID PRN cough #30 caps 07/02/24 07/17/24 Rx tramadol 50 mg tablet 100 mg (2 x 50 mg) PO Q6H PRN pain 07/05/24 07/17/24 Rx #100 tabs Allergies Allergy/AdvReac Type Severity Reaction Status Date / Time No Known Allergies Allergy Verified 07/17/24 09:11 Vital Signs Vital Signs - 24 hr 07/17/24 09:13 Temperature 97.8 F Pulse Rate 60 Respiratory Rate 18 Blood Pressure 132/98 H Pulse Oximetry 99 Oxygen Delivery Room Air Exam Narrative: The patient's physical exam is essentially unchanged from prior examination on 05/14/2024. Specifically, patient demonstrates normal lung capacity, tidal volume and respiratory rate without wheezes, crackles, rales or rubs. Heart rate and rhythm are regular without murmurs, gallops or rubs. No JVD. Pulses 2+ globally without increasing peripheral edema. AAOx3 with no evidence of confusion, intoxication or altered mental state, NC/AT without acute distress or altered consciousness. Speech, cognition, mood, insight and judgment at b aseline and within normal limits. Assessment and Plan Assessment and plan (1) Dorsalgia of lumbar region: Code(s): M54.50 - Low back pain, unspecified Status: Acute (2) Chronic low back pain: Code(s): M54.50 - Low back pain, unspecified; G89.29 - Other chronic pain Status: Acute (3) Lumbosacral spondylosis: Code(s): M47.817 - Spondylosis without myelopathy or radiculopathy, lumbosacral region Status: Acute Plan Proceed as planned with diagnostic/prognostic medial branch blocks of the bilateral L3, L4, L5 medial branches/dorsal ramus(# 2) addressing the bilateral L4-5, L5-S1 facet joints under fluoroscopic guidance and with co ntrast control.
--- NOTE | 2024-07-17 09:51 | WPDHPUPDATE1 ---
History and Physical Update Update Date/Time: 07/17/24 09:51 History and Physical has been reviewed, including an updated exam of the patient. There are NO changes in the patient's condition. Risks, benefits, and alternatives have been discussed and questions answered. Patient agrees to proceed with procedure.
--- NOTE | 2024-07-17 09:51 | W.PM.PROC2 ---
Procedure Note - Detailed Date of Procedure 07/17/24 Pre-op Diagnosis Spondylosis w/o Myelopathy or Radiculopathy, chron Post-op Diagnosis Same Procedure Performed Diagnostic bilateral Lumbar Medial Branch/Dorsal Ramus Blocks at L3, L4, L5 Treating the bilateral L4-5, L5-S1 Facet Joints Under Fluoroscopic Guidance and with Contrast Control. (4 levels blocked). Surgeon Jaren Pradhan MD Learning And Development Officer None. Anesthesia Local Description of Procedure INFORMED CONSENT: Risks, benefits and alternatives to the procedure were discussed in detail with the patient who expressed explicit understanding and consent to proceed. Patient was informed verbally and in written form regarding the risks associated with the procedure including the low risk of serious infection, bleeding/bruising, allergic reaction, nerve or organ injury, paralysis, procedural site pain or discomfort, worsening pain and/or mobility, failure to treat and/or disfigurement. The patient expressed explicit understanding and consent to proceed. All materials required for the procedure were available prior to procedure start. Site and side were marked prior to procedure and confirmed in the presence of the patient. PROCEDURE IN DETAIL: The patient was brought to the procedural suite and placed in the prone position. Patient was made comfortable with use of pillows under the head/chest, hips and ankles. Skin overlying the injection site on the affected side(s) was prepared broadly with ChloraPrep applicator and draped in a sterile manner. Aseptic technique was used throughout. The endplates of the vertebral bodies at the site(s) of interest were aligned in the AP view. Ipsilateral oblique angulation was utilized to optimize visualization of the intersection between the superior articulating process and transverse process at each target site. Local anesthesia was established by infiltration with approximately 5 mL of 1% lidocaine via a 1-1/2 inch 27-gauge needle. A 25-gauge 3.5 inch Quincke spinal needle was advanced until the needle tip contacted periosteum at the target site, right L3. Lateral view was utilized to confirm the appropriate placement of the needle tip just anterior to the facet line and superior to the pedicle. In the Lateral view, 0.25 mL of Omnipaque 300 contrast medium was injected after negative aspiration for CSF, blood or other bodily fluid, showing appropriate extra-articular spread of contrast without evidence of intravascular, foraminal or intrathecal placement. A 0.5 mL solution of 2.0% PF lidocaine was injected after negative repeat aspiration. Appropriate spread of the injectate was confirmed with washout of previously injected contrast. No parasthesias were elicited. Needle was removed completely intact without difficulty. The same exact procedure was repeated for all remaining levels on the ipsilateral side, right L4, L5 medial branches/dorsal ramus, modified as necessary to accommodate for the new target location with identical findings and results and no evidence of complication. The same exact procedure was repeated for all remaining levels on the contralateral side, left L3, L4, L5 medial branches/dorsal ramus, modified as necessary to accommodate for the new target location with identical findings and results and no evidence of complication. Images were saved and documented in the patient chart. Patient's skin was cleaned and sterile bandage applied. The patient tolerated the procedure well. The patient was transported to the recovery area in stable condition where they were observed for an appropriate amount of time prior to discharge, without evidence of complication. Patient was instructed on the appropriate completion of a pain diary over the next 12-24 hours. The patient was instructed to avoid excessive activity for the next 48 hours, including climbing and frequent use of stairs. Showers only for 48 hours. They were instructed not to drive or operate heavy machinery for 24 hours. They are to monitor for severe headaches, fevers, chills, night sweats, erythema/swelling at the site or any other signs of infection, bleeding/bruising, bowel or bladder changes as well as new pain, weakness or numbness in the upper or lower extremity. Should they notice these changes, they are instructed to call our office immediately or report directly to the nearest Emergency Department if no answer or if after posted office hours. COMPLICATIONS: None COMMENTS: None CONTRAST WASTED: 28.5mL Omnipaque 300. Complications No immediate complications Condition Stable Disposition Same day [facility] Billing Surgery - Charge Forward: Surgery Billing
[2024-07-17 10:24] VITALS: BP 129/71; PULSE 67; RESP 23; O2SAT 97
[2024-07-17 10:31] VITALS: BP 115/55; PULSE 61; RESP 12; O2SAT 97
[2024-07-17] MEDS: LIDOCAINE 1% PF INJ 5 ML VIAL INFILTRATE (10:31)
[2024-07-17] MEDS: LIDOCAINE 2% PF LOCAL INJ 5 ML VIAL 3 ML INFILTRATE (10:33)
[2024-07-17 10:46] VITALS: BP 126/95; PULSE 64; RESP 15; O2SAT 98
== END 2024-07-17 10:47 | disposition home or self-care (01) ==
PROVIDERS: PCP Family Medicine; Visit Provider Anesthesiology Pain Medicine
PROC: (CPT 64493; principal; 2024-07-17 09:55)
DX: M47.817 Spondylosis without myelopathy or radiculopathy, lumbosacral region (principal); G89.29 Other chronic pain
CPT/HCPCS: 64493 ×2; 64494 ×2; 64495 ×2; 99199

== ENCOUNTER 2024-08-21 00:38 | Day surgery (SDC) | payer OTHER, SELFPAY ==
[2024-08-15 10:57] VITALS: BMI 34.5
--- NOTE | 2024-08-15 11:03 | PC.NURSE ---
Report to the Outpatient Waiting Room, entrance under the green pavilion located off [facility], at time _0630_ on date _[id number]_. Planned Procedure Time: _0830_.? Time changes happen often and if your time is changed the preop area will call you the afternoon before. - You and your visitor will be asked to self-screen and do not enter if you have any COVID symptoms. Please call surgeon if you need to reschedule. - A mask is optional within the hospital at this time. - No food or drink from midnight until time of surgery and no smoking, or chewing tobacco (or any form of nicotine). No chewing gum, candy or mints. Take only the following medications with a SIP of water on the morning of surgery: __None____ DO NOT STOP ANY OF YOUR OTHER PRESCRIPTION MEDICATIONS PRIOR TO SURGERY EXCEPT THE FOLLOWING Hold all vitamins and supplements for 3 days per anesthesiologist. Medications to discontinue per physician Date to take last dose____ Please no make-up, nail german, hairspray, perfume, deodorant, or body powder the day of surgery.? No jewelry (including any body piercings) or valuables the day of surgery, leave them at home.? Please take a shower or bath the night before, or the morning of, surgery with an antibacterial soap.? Wear comfortable, loose fitting clothing.? - Jewelry must be removed prior to entering the operating room.? Rings and piercings that are not removed may be cut off. - The hospital will not accept responsibility for valuables.? - Please leave all valuables, including medications, at home the day of surgery. If you are going home after surgery, a licensed garbage truck driver must drive you home.? - NO public transportation without another adult if you receive anesthesia. - We recommend that an adult stay with you for 24 hours following discharge. - We also recommend that you do not drive, make important decision, drink alcoholic beverages, or take any drugs that were not prescribed by your health care provider for at least 24 hours after your discharge time. Follow any additional instructions given to you from your surgeon. Telephone instructions given to __James__and asked if any additional questions and then verbalized understanding. Patient advised to call surgeon office or pre surgery nurse liaison [phone] if any additional questions.
--- NOTE | ~2024-08-21 | XR_ITS ---
EXAMINATION: XR fluoroscopy no charge DATE: 08/21/2024 08:50 INDICATION: Lumbar ablation TECHNIQUE: 11 fluoroscopic images of the lumbar spine were obtained during procedure performed by Dr. Pradhan. Radiologist was not present for the imaging or procedure. The amount of fluoroscopy time used during this procedure was 1.3 minutes. Total DAP was 13.297 Gym^2. COMPARISON: None. FINDINGS: Images demonstrate advancement of needles with distal tips positioned along the junction of the cephalad margin of the transverse and superior articular processes of L4, L5 and S1. Note is mad e of L5 spondylolysis with lucent pars defects and grade 1 anterolisthesis on S1. Moderate lower lumb ar spondylosis. IMPRESSION: 1. Possible utilized during pain management procedure the lower lumbar spine. See procedure note for further detail. Reviewed, dictated and finalized at location B. IMPRESSION: 1. Possible utilized during pain management procedure the lower lumbar spine. S ee procedure note for further detail.
--- OUTSIDE RECORDS SUMMARY | 2024-08-21 00:41 | XMS_ITS | Clinical Summary ---
Author Organization [facility] Address [address] [place] [address] Care Team Providers Care President Celebrity Acquistion Name Role Phone Fredis Arango MD Primary Care Provider [phone] Allergies No known active allergies Medications temazepam [...] CDT - 06/05/2024 12:51 PM CDT Emergency [facility] Emergency Department [address] [place] [address] Acute exacerbation of chronic low back pain [...] drink = 0.6 oz pur e alcohol) [facility] Utilities Answer Date Recorded In the past 12 months has e electric, gas, oil, or water [employer] threatened to shut off services in your [...] How often do you attend chur or jain services? Never 06/09/2023 Do you belong to any clubs o r organizations such as yarsanism groups, unions, fraternal or athletic groups, or [...] staff should administer the PHQ-9) 0 06/09/2023 [facility] - Occupational Stress [...] place to sleep or slept in a fpc (including now)? 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 Gender Identity Not on file Sexual Orientation [...] patient's age to complete this topic Insurance [facility] [employer] OPEN [place] [address] [place] [address] [employer] OPEN ACCESS [facility] CMR WORKERS COMPENSATION GENERIC WORKERS COMPENSATION GENERIC [place] [id number] Advance Directives For more information, please contact: [phone] * Full Code (Latest Code Status on File) Date Activated Date Inactivated Comments 06/08/2023 1:22 PM 06/10/2023 6:22 PM * Full Code Date Activated Date Inactivated Comments 11/08/2022 2:31 PM 11/10/2022 8:30 PM Care Teams President Celebrity Acquistion Relationship Specialty Start Date End Date Fredis Arango MD PCP - General Family Practice 06/05/23
--- OUTSIDE RECORDS SUMMARY | 2024-08-21 00:41 | XMS_ITS | Referral Summary ---
Author Organization [facility] Address [address] [place] [address] Care Team Providers Care Water Pumper Name Role Phone Fredis Arango MD Primary Care Provider [phone] Encounters Date Type Department Care Team Description 06/05/2024 12:05 PM CDT - 06/05/2024 12:51 PM CDT Emergency [facility] Emergency Department [address] [place] [address] Acute exacerbation of chronic low back pain [...] drink = 0.6 oz pur e alcohol) [facility] [employer] Answer Date Recorded In the past 12 months has e [employer], gas, oil, or water [employer] threatened to shut off services in your [...] often do you attend chur ch or islam services? Never 06/09/2023 Do you belong to any clubs o r organizations such as rastafari groups, unions, fraternal or athletic groups, or [...] staff should administer the PHQ-9) 0 06/09/2023 [facility] - Occupational Stress Questionnaire Answer Date Recorded [...] place to sleep or slept in a custodial (including now)? 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 Gender Identity Not on file Sexual Orientation [...] Plan of Treatment Not on file Insurance [facility] [employer] OPEN ACCESS [place] [id number] [place] [id number] [employer] OPEN ACCESS [facility] WORKERS COMPENSATION GENERIC WORKERS COMPENSATION GENERIC Advance Directives For more information, please contact: [phone] * Full Code (Latest Code Status on File) Date Activated Date Inactivated Comments 06/08/2023 1:22 PM 06/10/2023 6:22 PM * Full Code Date Activated Date Inactivated Comments 11/08/2022 2:31 PM 11/10/2022 8:30 PM Care Teams Water Pumper Relationship Specialty Start Date End Date Fredis Arango MD PCP - General Family Practice 06/05/23
--- NOTE | 2024-08-21 05:27 | WPDHPUPDATE1 ---
History and Physical Update Update Date/Time: 08/21/24 05:27 History and Physical has been reviewed, including an updated exam of the patient. There are NO changes in the patient's condition. Risks, benefits, and alternatives have been discussed and questions answered. Patient agrees to proceed with procedure.
--- NOTE | 2024-08-21 05:28 | P.OP_ITS ---
Procedure Note - Detailed Date of Procedure 08/21/24 Pre-op Diagnosis Lumbosacral spond Post-op Diagnosis Same Procedure Performed Thermal Radiofrequency Ablation of the Bilateral Lumbar Medial Branches/Dorsal Ramus at the L3, L4, L5 Levels Treating the Bilateral L4-5, L5-S1 Facet Joints Under Fluoroscopic Guidance (4 Levels Treated). Surgeon Jaren Pradhan MD Senior Principal Architect None. Anesthesia Local (w/ MAC) Description of Procedure INFORMED CONSENT: Risks, benefits and alternatives to the procedure were discussed in detail with the patient who expressed explicit understanding and consent to proceed. Patient was informed verbally and in written form regarding the risks associated with the procedure including the low risk of serious infection, bleeding/bruising, allergic reaction, nerve or organ injury, paralysis, procedural site pain or discomfort, worsening pain and/or mobility, failure to treat and/or disfigurement. The patient expressed explicit understanding and consent to proceed. All materials required for the procedure were available prior to procedure start. Site and side were marked prior to procedure and confirmed in the presence of the patient. PROCEDURE IN DETAIL: The patient was brought to the procedural suite and placed in the prone position. Patient was made comfortable with use of pillows under the head/chest, hips and ankles. ASA standard monitors were applied and used throughout the procedure. Skin overlying the injection site on the affected side(s) was prepared broadly with ChloraPrep applicator and draped in a sterile manner. Aseptic technique was used throughout. The endplates of the vertebral bodies at the site(s) of interest were aligned in the AP view. Ipsilateral oblique angulation was utilized to optimize visualization of the intersection between the superior articulating process and transverse process at each target site. Local anesthesia was established by infiltration with approximately 5 mL of 1% lidocaine via a 1-1/2 inch 27-gauge needle divided over each site treated. A 16-gauge 100mm MenuSpringian RF needle with curved 10mm active tip was advanced in the AP view until the needle tip contacted the periosteum at the target site, the right L3 medial branch. Lateral view was utilized to adjust and confirm the appropriate placement of the needle tip just anterior to the facet line, superior to the pedicle and posterior to the foramen. Grounding electrode was in place and functioning. The appropriately-sized RF cannula was inserted into the RF needle and motor stimulation was performed with no subjective or objective evidence of recruited muscle activity with stimulation up to 2.0 volts at a frequency of 2Hz. 1.5 mL of 2.0% PF lidocaine was injected after negative aspiration. After a 90s pause, lesioning was performed to 90 degrees centigrade for 90s ensuring lack of symptoms in the extremity throughout. Needle was rotated 180 degrees and lesioning repeated in a similar manner. Patient tolerated this well. No paresthesias were elicited. Needle was removed complete ly intact without difficulty. The same procedure was repeated for all intended levels/ structures on the ipsilateral side, right L4, L5 medial branch/dorsal ramus with identical methodology, modified to compensate for new location, with similar results and no evidence of complication. The same exact procedure was repeated for all remaining levels on the contralateral side, left L3, L4, L5 medial branches/dorsal ramus, modified as necessary to accommodate for the new target location with identical findings/results and no evidence of complication. Images were saved and documented in the patient chart. Patient's skin was cleansed and sterile bandage applied. The patient tolerated the procedure well. The patient was transported to the recovery area in stable condition where they were observed for an appropriate amount of time prior to discharge, without evidence of complication. The patient was instructed to avoid excessive activity for the next 48 hours, including climbing and frequent use of stairs. Showers only for 48 hours. They were instructed not to drive or operate heavy machinery for 24 hours. They are to monitor for severe headaches, fevers, chills, night sweats, erythema/swelling at the site or any other signs of infection, bleeding/bruising, bowel or bladder changes as well as new pain, weakness or numbness in the upper or lower extremity. Should they notice these changes, they are instructed to call our office immediately or report directly to the nearest Emergency Department if no answer or if after posted office hours. COMPLICATIONS: None COMMENTS: None Complications No immediate complications Condition Stable Disposition PACU [facility] Billing Surgery - Charge Forward: Surgery Billing
[2024-08-21 07:10] VITALS: BP 121/79; PULSE 60; RESP 20; TEMP 36.1; O2SAT 98
[2024-08-21] MEDS: LACTATED RINGERS 1,000 ML 30 ML IV CONT (07:30)
--- NOTE | 2024-08-21 07:39 | P.PNAN_ITS ---
Anes - Initial Pre Proc Eval Procedure: Operation Date: 08/21/24 08:30 Proposed Procedures p Thermal Radio Frequency Ablation of Bilateral L3, L4, L5 Medial Branches / Dorsal Rami Addressing Bilateral L4-5, L5-S1 Facet Joints under Fluoroscopic Guidance with Contrast Control - Jaren Pradhan MD Date/Time: 08/21/24 07:39 Surgeon: Jaren Pradhan MD Pre Op Diagnosis: Lumbosacral spond Patient Data Age: 43 Gender: M Height: 1.83 m Weight: 118.2 kg Last Vital Signs Temp 36.1 C L 08/21/24 07:10 Pulse 60 08/21/24 07:10 Resp 20 08/21/24 07:10 BP 121/79 08/21/24 07:10 Pulse Ox 98 08/21/24 07:10 O2 Del Method Room Air 08/21/24 07:10 Allergies Allergy/AdvReac Type Severity Reaction Status Date / Time No Known Allergies Allergy Verified 08/21/24 07:19 Home Medications ?Medication ?Instructions ?Recorded ?Confirmed ?Type sumatriptan succinate 100 mg See Rx Instructions PO .COMPLEX 12/29/21 08/15/24 Rx tablet (Imitrex) #14 tabs ropinirole 2 mg tablet 2 mg PO DAILY #30 tabs 07/11/23 08/21/24 Rx doxepin 25 mg capsule 25 mg PO QHS #30 caps 05/31/24 08/21/24 Rx tramadol 50 mg tablet 100 mg (2 x 50 mg) PO Q6H PRN pain 08/01/24 08/15/24 Rx #100 tabs Patient hx anesthesia problems: none Family hx anesthesia problems: none Results Review: All pre-operative results and documents have been reviewed as part of the pre- operative evaluation. [facility] Past Medical History Medical History Tobacco abuse LINETTE (obstructive sleep apnea) Family History Family History Father Diabetes mellitus Hypertension Depression Mother Depression Social History Social History Smoking status: Light tobacco smoker Tobacco type: cigars Second hand tobacco smoke exposure: Yes Additional smoking assessment comments: Maybe once a month. Alcohol intake: current Alcohol use details: rarely Substance use: never Substance use type: does not use Lack of Transportation: No Lack of Food: Never True Current Housing: I Have Housing Concerned About Future Housing: No Difficulty Paying Gas/Electric Bills: No Difficulty Paying for Meds: No Currently Unemployed: No Education: High School Diploma/GED Difficulty w/ Childcare or Family Care: No Living arrangements: with family Gender identity (if verbalized by the patient): Male Spiritual care concerns: No Anes - Eval Final PreProcedure Day of Procedure 08/21/24 07:39 Patient weight: obese Heart: regular rate and rhythm Lungs: decreased breath sounds Airway: Mallampati scale class II Neurological: alert and oriented Last oral intake: >/= 8 hours ASA classification: III Emergent: no Anesthetic plan: proceed Anesthesia type and monitoring: monitored anesthesia care and standard mon itoring Results Review: All pre-operative results and documents have been reviewed as part of the pre- operative evaluation. Informed Consent: The patient's anesthetic plan and its attendant risks and benefits were discussed with the patient/family/POA. Questions were solicited and answers provided to the satisfaction of the patient/family/POA.
[2024-08-21] MEDS: LIDOCAINE 1% PF INJ 5 ML VIAL INFILTRATE (08:45)
[2024-08-21] MEDS: LIDOCAINE 2% PF LOCAL INJ 5 ML VIAL INFILTRATE (08:45)
[2024-08-21 08:49] VITALS: BP 116/90; PULSE 58; RESP 16; O2SAT 97
[2024-08-21 09:15] VITALS: BP 118/78; PULSE 62; RESP 16
[2024-08-21 09:40] VITALS: BP 109/79; PULSE 60; RESP 16
== END 2024-08-21 09:46 | disposition home or self-care (01) ==
PROVIDERS: PCP Family Medicine; Visit Provider Anesthesiology Pain Medicine
PROC: (CPT 64635; principal; 2024-08-21 08:30)
DX: M47.817 Spondylosis without myelopathy or radiculopathy, lumbosacral region (principal); M54.50 Low back pain, unspecified; G89.29 Other chronic pain
CPT/HCPCS: 64635; 64636 ×6; 99199; J2003; J2250; J3010; J7120

== ENCOUNTER 2024-12-17 16:15 | Outpatient (CLI) | payer OTHER, SELFPAY ==
--- OUTSIDE RECORDS SUMMARY | 2021-12-30 04:30 | XMS_ITS | Continuity of Care Document ---
Author Organization [facility] Address [address] [place] [address] [address] [place] [address] Phone Care Team Providers Care Yarn Hauler Name Role Phone [facility] [place] Unavailable U navailable Procedures Procedure Date Ureteros W Litho & Stent Fiber Single Use 200 Micron Glidewire .035 Straight Zip Wire 2021 Guidewire .038 Stent Percuflex Advance Directives Directive Yes / No Effective Date File Name No Information Encounters Encounter Description Practice Location Reason(s) For Visit Diagnoses Date Provider Providers Copied on Encounter [facility], [address] [place], [place] [address], [place], [place], [id number], [place] tel:[phone] 5416 [facility] No Information [facility]. [address] [place] [address], [id number] , [place]. tel:[phone] Referring Provider: Gaston Lara, [address] [place] [address], [id number] . tel:[phone] Family History Family Member Type Diagnosis Age At Onset No Information Payers Payer name Insurance type Covered republican ID Authoriza tion(s) [place] Medicaid Total Care [id number] Social History Type Description Quantity Date Captured Comments Sex Male Smoking Status No Information Chief Complaint And Reason For Visit No Information Reason For Referral Reason For Referral No Information History Of Present Illness Encounter Date Complaint History Of Prese nt Illness No Information Functional Status Date Functional Assessmen t No Information Instructions Date Instruction Additional Infor mation No Information Assessments Type Assessment Date No Information Patient Care Teams Name Effective Dates (start - stop) Status Members No Information
--- OUTSIDE RECORDS SUMMARY | 2022-05-18 03:36 | XMS_ITS | Continuity of Care Document ---
Author Organization [facility] Address [address] [place] [phone] Phone Care Team Providers Care Die Maker Electronic Name Role Phone Gaston Lara MD Unavailable Unavailable Allergies, Adverse Reactions, Alerts Substance Reaction Status Criticality lorazepam Active No Information Medications Medication Instructions Dosage Effective Dates (start - stop) Status Comments hydrocodone 5 mg-acetaminophen 325 mg tablet take 1 tablet by oral route every 6 hours as needed for pain 1.00 tablet - Active tamsulosin 0.4 mg capsule take 1 capsule by oral route every day 1/2 hour following the same meal each day 0.4 MG - Active Procedures Procedure Date Ureteros W Litho & Stent KUB Xray Abdomen [address] Abd/Pelvis W/Out Contrast OV - New Patient Urinalysis - Automated Advance Directives Directive Yes / No Effective Date File Name No Information Encounters Encounter Description Practice Location Reason(s) For Visit Diagnoses Date Provider Providers Copied on Encounter [facility] , [address] [place] [address], [id number], [place] tel:[phone] [facility] No Information 3 Jane Feldman. [address] [place] [address], [id number], [place]. tel:[phone] [facility] , [address] [place] [address], [id number], [place] tel:[phone] [facility] Calculus of kidneyLeft lower quadrant pain 2 Jane Feldman. [address] [place] [address], [id number], [place]. tel:[phone] Referring Provider: Rich Koch, [address] [place] [address], [id number]. tel:[phone] OV - New Patient [facility], [address] [place], [place] [address], [id number], [place] tel:[phone] [facility] Personal history of urinary calculiHematuria , unspecifiedPerso nal history of urinary calculiLeft lower quadrant pain 2 Chanelle Sanchez. [address] [place] [address], [id number], [place]. tel:[phone] Referring Provider: Rich Koch, [address] [place] [address], [id number]. tel:[phone] Family History Family Member Type Diagnosis Age At Onset Other Problem Prostate [place] Payers Payer name Insurance type Covered libertarian ID Authoriza tion(s) No Information Social History Type Description Quantity Date Captured [...]
--- NOTE | ~2024-12-17 | XR_ITS ---
EXAMINATION: XR abdomen/kub 1V DATE: 12/17/2024 16:41 INDICATION: Testicular pain, unspecified TECHNIQUE: A supine view of the abdomen on 2 radiographs was obtained. COMPARISON: 01/26/2022 FINDINGS: Cholecystectomy clips are present. Lung bases are clear. Moderate amount of air and stool in nondilated large bowel. There are a few less than 1.0 cm calcifications projecting over the pelvis which may represent phleboliths, however, a distal ureteral stone or bladder stone or possible. IMPRESSION: 1. Nonspecific abdomen with a moderate amount of stool. If symptoms persist or worsen, consider a short-term follow-up study or CT imaging for further assessment. Reviewed, dictated and finalized at location Q. IMPRESSION: 1. Nonspecific abdomen with a moderate amount of stool. If symptoms persist or worsen, consider a short-term follow-up study or CT imag ing for further assessment.
--- NOTE | ~2024-12-17 | CT_ITS ---
EXAMINATION: CT abdomen pelvis wo con DATE: 12/17/2024 16:44 INDICATION: Testicular pain TECHNIQUE: Computed tomography (CT) of the abdomen and pelvis was performed with 100 mL Omnipaque-350 intravenous contrast. Automated exposure control and iterative reconstruction technique were employed. The dose-length product was 500.40 mGy-cm. COMPARISON: 10/31/2021 FINDINGS: Lung bases are clear. Heart size is normal. Small of atherosclerotic coronary artery calcific location. No pericardial or pleural effusion. Cholecystectomy clips at the gallbladder fossa. Liver, spleen, pancreas and bilateral adrenal glands are normal. 3 mm stone in the distalmost left ureter approximately 1 cm from the ureterovesicular junction. No other urolithiasis. Kidneys are normal with no hydronephrosis. Bowels including the appendix are normal. Bladder is normal. Small fat-containing right inguinal hernia. No free intraperitoneal gas or fluid. No pathologically enlarged abdominal or pelvic lymphadenopathy. L5 spondylolysis with bilateral pars intra-articular is defects and 6 mm anterolisthesis on S1. IMPRESSION: 1. 3 mm stone near the right ureterovesicular junction without hydronephrosis. Reviewed, dictated and finalized at location A.
--- OUTSIDE RECORDS SUMMARY | 2024-12-17 17:16 | XMS_ITS | Clinical Summary ---
Author Organization [facility] Address [address] [place] [address] Care Team Providers Care Server Manager Name Role Phone Fredis Arango MD Primary Care Provider [phone] [phone] Allergies No known active allergies Medications temazepam [...] drink = 0.6 oz pur e alcohol) [facility] Utilities Answer Date Recorded In the past 12 months has e [employer], oil, or water [employer] threatened to shut off services in your [...] or ex-partner? No 06/09/2023 Social Connection and Isolation Panel Answer Date Recorded In a typical week, how many times do you talk on the phone with family, friends, or neighbors? More than three times a week 06/09/2023 How often do you get togethe r with friends or relatives? Once a week 06/09/2023 How often do you attend chur or adventist services? Never 06/09/2023 Do you belong to any clubs o r organizations such as yazidism groups, unions, fraternal or athletic groups, or [...] staff should administer the PHQ-9) 0 06/09/2023 [facility] - Occupational [...] place to sleep or slept in a nursing home (including now)? 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 Gender Identity Not on file Sexual Orientation [...] Health Maintenance Due Date Last Done Comments Colon Cancer Screening-Colonoscopy 1979 Hepatitis C Screening 1979 Varicella Vaccines (1 of 2 - 13+ 2-dose series) 08/31/1992 Hepatitis B Screening 08/31/1997 Pneumococcal vaccine <65 (1 of 2 - PCV) 08/31/1998 HPV Vaccines (1 - 3-dose SCD M series) 08/31/2006 Regular Well Visit/Exam 18-64 04/20/2022, 03/05/2020, 10/02/2018 Depression Screening 06/08/2024 06/09/2023, 04/20/2021, 09/25/2020, Additional history exists Influenza Vaccine (#1) 2024 , 12/02/2017, 01/02/2016, Additional history exists DTaP/Tdap/Td Vaccine (3 - Td or Tdap) 06/05/2033 06/06/2023, 07/01/2016 Insurance [facility] [employer] OPEN ACCESS [place] [address] [place] [address] [employer] OPEN ACCESS [facility] CMR WORKERS COMPENSATION GENERIC WORKERS COMPENSATION GENERIC Advance Directives For more information, please contact: [phone] * Full Code (Latest Code Status on File) Date Activated Date Inactivated Comments 06/08/2023 1:22 PM 06/10/2023 6:22 PM * Full Code Date Activated Date Inactivated Comments 11/08/2022 2:31 PM 11/10/2022 8:30 PM Care Teams Server Manager Relationship Specialty Start Date End Date Fredis Arango MD PCP - General Family Practice 06/05/23
== END 2024-12-17 16:16 | disposition home or self-care (01) ==
PROVIDERS: PCP Family Medicine; Visit Provider Nurse Practitioner Family
DX: N50.819 Testicular pain, unspecified (principal); N20.0 Calculus of kidney
CPT/HCPCS: 74018; 74176

== ENCOUNTER 2025-02-13 11:49 | Outpatient (CLI) | payer OTHER, SELFPAY ==
--- NOTE | ~2025-02-13 | CT_ITS ---
EXAMINATION: CT abdomen pelvis wo con DATE: 02/13/2025 12:08 INDICATION: Right ureteral stone. TECHNIQUE: Computed tomography (CT) of the abdomen and pelvis was performed without intravenous contrast. Automated exposure control and iterative reconstruction technique were employed. The dose-length product was 464.05 mGy-cm. COMPARISON: CT abdomen and pelvis 12/17/2024 FINDINGS: The visualized portions of the lung bases are clear without pneumonia or pleural effusion. The heart size is normal. No pericardial effusion. There are coronary artery calcifications. There is diffuse hepatic steatosis. There are changes of cholecystectomy. The spleen, pancreas, adrenal glands, and kidneys are normal. There are bilateral inguinal hernias containing fat. There are no dilated loops of bowel. The appendix is not visualized. There are no pathologically enlarged lymph nodes. There is no free intraperitoneal fluid. There are chronic bilateral L5 pars defects. There is 8 mm anterolisthesis of L5 on S1. There is severe lower lumbar spondylosis. IMPRESSION: 1. No urolithiasis. 2. Diffuse hepatic steatosis. 3. Bilateral inguinal hernias containing fat. Reviewed, dictated and finalized at location E. COMMERCIAL SALESPERSON
== END 2025-02-13 11:50 | disposition home or self-care (01) ==
PROVIDERS: PCP Family Medicine; Visit Provider Nurse Practitioner Family
DX: N20.1 Calculus of ureter (principal)
CPT/HCPCS: 74176